=== PATIENT | female | born 1970 | race Caucasian/White ===

== ENCOUNTER 2017-07-13 15:09 | Outpatient (CLI) | payer BC | END 2017-07-13 15:10 | disposition home or self-care (01) | LOC: BICMAMMO 15:09 | DX: Z12.31 Encounter for screening mammogram for malignant neoplasm of breast (principal) | CPT/HCPCS: 77063; 77067 ==

== ENCOUNTER 2018-11-14 14:51 | Outpatient (CLI) | payer BC ==
--- NOTE | 2018-11-14 15:53 | RAD ---
RIGHT KNEE FOUR VIEWS: 11/14/18 HISTORY: Right knee pain. FINDINGS/IMPRESSION: No fracture, dislocation or bony destruction seen. No joint effusions identified. Minimal osteophyto sis is noted. POS: [facility]
== END 2018-11-14 14:52 | disposition home or self-care (01) ==
LOC: SCSRAD 14:51
PROVIDERS: ATTEND Nurse Practitioner Family
DX: M25.561 Pain in right knee (principal); G89.29 Other chronic pain

== ENCOUNTER 2018-11-23 07:30 | Outpatient (CLI) | payer BC ==
--- NOTE | 2018-11-23 08:30 | MMO ---
Bilateral MAMMO Bilat Screen [facility]. CLINICAL HISTORY: Patient is 48 years old and is seen for screening. The patient has the following family history of breast cancer: maternal grandmother, great grandmother. The patient has no personal history of cancer. VIEWS: The views performed were: bilateral craniocaudal with tomosynthesis and bilateral mediolateral oblique with tomosynthesis. FILMS COMPARED: The present examination has been compared to prior imaging studies performed at [facility] on 08/08/2013, 08/15/2014, 10/16/2015 and 07/13/2017. MAMMOGRAM FINDINGS: There are scattered fibroglandular densities. There are no suspicious masses, suspicious calcifications, or new areas of architectural distortion. IMPRESSION: THERE IS NO MAMMOGRAPHIC EVIDENCE OF MALIGNANCY. A ROUTINE FOLLOW-UP MAMMOGRAM IN 1 YEAR IS RECOMMENDED. THE RESULTS OF THIS EXAM WERE SENT TO THE PATIENT. ACR BI-RADS Category 1 - Negative MAMMOGRAPHY NOTE: 1. A negative mammogram report should not delay a biopsy if a dominant of clinically suspicious mass is present. 2. Approximately 10% to 15% of breast cancers are not detected by mammography. 3. Adenosis and dense breasts may obscure an underlying neoplasm. Reported by: SHELIA CHURCH MD Electonically Signed: [id number]
== END 2018-11-23 07:31 | disposition home or self-care (01) ==
LOC: BICMAMMO 07:30
PROVIDERS: ATTEND Nurse Practitioner Family
DX: Z12.31 Encounter for screening mammogram for malignant neoplasm of breast (principal); Z80.3 Family history of malignant neoplasm of breast
CPT/HCPCS: 77063; 77067

== ENCOUNTER 2020-01-08 11:48 | Outpatient (CLI) | payer BC ==
--- NOTE | 2020-01-08 16:34 | MMO ---
Bilateral MAMMO Bilat Screen [facility]. CLINICAL HISTORY: Patient is 49 years old and is seen for screening. The patient has the following family history of breast cancer: maternal grandmother, great grandmother. The patient has no personal history of cancer. VIEWS: The views performed were: bilateral craniocaudal with tomosynthesis and bilateral mediolateral oblique with tomosynthesis. FILMS COMPARED: The present examination has been compared to prior imaging studies performed at [facility] on 08/15/2014, 10/16/2015, 07/13/2017 and 11/23/2018. This study has been interpreted with the assistance of computer-aided detection. MAMMOGRAM FINDINGS: There are scattered fibroglandular densities. There are no suspicious masses, suspicious calcifications, or new areas of architectural distortion. IMPRESSION: THERE IS NO MAMMOGRAPHIC EVIDENCE OF MALIGNANCY. A ROUTINE FOLLOW-UP MAMMOGRAM IN 1 YEAR IS RECOMMENDED. THE RESULTS OF THIS EXAM WERE SENT TO THE PATIENT. ACR BI-RADS Category 1 - Negative MAMMOGRAPHY NOTE: 1. A negative mammogram report should not delay a biopsy if a dominant of clinically suspicious mass is present. 2. Approximately 10% to 15% of breast cancers are not detected by mammography. 3. Adenosis and dense breasts may obscure an underlying neoplasm. Reported by: MYRIAM HOPKINS MD Electonically Signed: [id number]
== END 2020-01-08 11:49 | disposition home or self-care (01) ==
LOC: BICMAMMO 11:48
PROVIDERS: ATTEND Family Medicine
DX: Z12.31 Encounter for screening mammogram for malignant neoplasm of breast (principal); Z80.3 Family history of malignant neoplasm of breast
CPT/HCPCS: 77063; 77067

== ENCOUNTER 2021-05-18 12:35 | Outpatient (CLI) | payer BC | END 2021-05-18 12:36 | disposition home or self-care (01) | LOC: BICMAMMO 12:35 | PROVIDERS: ATTEND Family Medicine | DX: Z12.31 Encounter for screening mammogram for malignant neoplasm of breast (principal); Z80.3 Family history of malignant neoplasm of breast | CPT/HCPCS: 77063; 77067 ==

== ENCOUNTER 2023-07-28 14:53 | Outpatient (CLI) | payer BC | END 2023-07-28 14:54 | disposition home or self-care (01) | LOC: BICMAMMO 14:53 | PROVIDERS: ATTEND Family Medicine | DX: Z12.31 Encounter for screening mammogram for malignant neoplasm of breast (principal); Z80.3 Family history of malignant neoplasm of breast | CPT/HCPCS: 77063; 77067 ==

== ENCOUNTER 2023-09-09 11:31 | Outpatient (CLI) | payer BC | END 2023-09-09 11:32 | disposition home or self-care (01) | LOC: DTY/OP 11:31 | PROVIDERS: ATTEND Specialist | DX: E66.01 Morbid (severe) obesity due to excess calories (principal) | CPT/HCPCS: 97802 ==

== ENCOUNTER 2023-10-05 15:39 | Outpatient (CLI) | payer BC ==
[2023-10-05 16:37] LABS: #Basophils 0.02 10x3/uL (0.0-0.2); #Eosinphils 0.09 10x3/uL (0.0-0.5); #Monocytes 0.61 10x3/uL (0.0-1.1); #Neutrophils 5.21 10x3/uL (1.5-8.4); %Basophils 0.2 % (0.0-2.0); %Eosinophils 1.1 % (0.0-6.0); %Monocytes 7.2 % (0.0-10.0); %Neutrophils 61.1 % (40.0-75.0); Hematocrit 41.2 % (34.9-44.5); Hemoglobin 14.6 g/dL (12.0-15.5); Mean Corpuscular HGB CONC 35.4 g/dL (32.0-36.0); Mean Corpuscular Hemoglobin 32.7 pg (27.0-33.0); Mean Corpuscular Volume 92.2 fL (81.6-98.3); Mean Platelet Volume 9.8 fL (7.4-10.4); Platelet Count 317 10x3/uL (150-450); RBC Distribution Width 12.5 % (11.5-14.5); Red Blood Cell (RBC) Count 4.47 10x6/uL (3.90-5.03); White Blood Cell (WBC) Count 8.5 10x3/uL (3.5-10.5)
[2023-10-05 16:51] LABS: Anion Gap 15 mmol/L (10-20); BUN (Urea Nitrogen) 21 mg/dL (9.8-20.1); Calc. Creatinine Clearance 0 mL/min (70-130); Calcium 10.4 mg/dL (7.8-10.44); Carbon Dioxide 25 mmol/L (22-29); Chloride 102 mmol/L (98-107); Estimated GFR 83; Glucose 90 mg/dL (70-105); Potassium 4.1 mmol/L (3.5-5.1); Sodium 138 mmol/L (136-145)
[2023-10-05 20:03] LABS: Hemoglobin A1c 5.4 % (4.0-6.0)
== END 2023-10-05 15:40 | disposition home or self-care (01) ==
LOC: LABBT 15:39
PROVIDERS: ATTEND Specialist
DX: Z01.818 Encounter for other preprocedural examination (principal)
CPT/HCPCS: 80048; 83036; 85025; 93005; 93010

== ENCOUNTER 2023-10-05 16:30 | Inpatient (IN) | payer BC ==
[2023-10-05 15:57] VITALS: BMI 45.4
[2023-10-13] MEDS ORDERED: EPINEPHrine 1 MG/ML VIAL ONE ×2 (08:20→09:49)
[2023-10-13] MEDS ORDERED: Midazolam HCl 2 mg/2 ml Vial ONE (08:20)
[2023-10-13] MEDS ORDERED: fentaNYL 50 mcg/mL 1 mL Vial ONE ×3 (08:20→13:52)
[2023-10-13] MEDS ORDERED: Lidocaine 1% (PF) 30 ML VIAL ONE ×2 (08:21→09:42)
[2023-10-13] MEDS ORDERED: Bupivacaine PF 0.5% 30 ML VIAL ONE (08:21)
[2023-10-13] MEDS ORDERED: Ketorolac Tromethamine 30 MG (1 mL) VIAL ONE (08:25)
[2023-10-13] MEDS ORDERED: Acetaminophen 500 MG TAB ONE (08:26)
[2023-10-13] MEDS ORDERED: Sodium Chloride 0.9% 100 ML ONE ×2 (08:26→10:59)
[2023-10-13] MEDS ORDERED: CEFAZOLIN 2 GM VIAL ONE (08:26)
[2023-10-13] MEDS ORDERED: Heparin 5,000 UNITS/ML VIAL ONE (09:56)
[2023-10-13] MEDS ORDERED: PROPOFOL 20 ML ONE (09:57)
[2023-10-13] MEDS ORDERED: Lidocaine 2% PF 5 ML VIAL ONE (09:57)
[2023-10-13] MEDS ORDERED: fentaNYL PF 100 MCG/2 ML SYRINGE ONE (09:57)
[2023-10-13] MEDS ORDERED: Rocuronium Bromide 10 MG/ML (10ML VIAL) ONE (10:02)
[2023-10-13] MEDS ORDERED: Ondansetron PF 4 MG/2 ML Vial ONE (10:31)
[2023-10-13] MEDS ORDERED: Dexamethasone 20 MG/5 ML VIAL ONE (10:31)
[2023-10-13] MEDS ORDERED: Promethazine HCl 25 MG/ML VIAL ONE (10:40)
[2023-10-13] MEDS ORDERED: HYDROmorphone 2 MG/ML VIAL ONE (10:43)
[2023-10-13] MEDS ORDERED: Indocyanine Green 25 MG/10 ML VIAL ONE (10:58)
[2023-10-13] MEDS ORDERED: Esmolol 100 MG/10 ML VIAL ONE (11:13)
[2023-10-13] MEDS ORDERED: SUGAMMADEX SODIUM 200 MG/2 ML VIAL ONE (11:41)
[2023-10-13] MEDS ORDERED: Glucagon 1 MG/ML KIT IM PRN (12:09)
[2023-10-13] MEDS ORDERED: Promethazine HCl 25 MG/ML VIAL IM PRN (12:09)
[2023-10-13] MEDS ORDERED: Morphine 4 MG/ML VIAL SLOW IVP PRN (12:09)
[2023-10-13] MEDS ORDERED: Morphine 2 MG/ML VIAL SLOW IVP PRN (12:09)
[2023-10-13] MEDS ORDERED: diphenhydrAMINE 50 MG/ML VIAL IVP PRN (12:09)
[2023-10-13] MEDS ORDERED: Dextrose 50% Abboject 50 ML SYRINGE SLOW IVP PRN (12:09)
[2023-10-13] MEDS ORDERED: Ipratropium/Albuterol 3 ML NEB NEB PRN (12:09)
[2023-10-13] MEDS ORDERED: Dextrose 5% in Water 1,000 ML IV PRN (12:09)
[2023-10-13] MEDS ORDERED: Labetalol HCl 100 MG/20 ML VIAL ONE (12:57)
[2023-10-13] MEDS ORDERED: hydrALAZINE 20 MG/ML VIAL ONE (13:10)
[2023-10-13] MEDS: D5 1/2 NS w/20 mEq KCL 1,000 ML IV SCH (14:18)
[2023-10-13] MEDS: Ketorolac Tromethamine 30 MG (1 mL) VIAL IVP SCH (14:18)
[2023-10-13] MEDS: Ondansetron PF 4 MG/2 ML Vial IVP PRN (17:07)
[2023-10-13] MEDS: Enoxaparin 40 MG (0.4 mL) SYRINGE SC SCH (20:53)
[2023-10-13] MEDS: Hydrocodone-Acetamin 15 ML UDCUP PO PRN (20:58)
[2023-10-14 05:51] LABS: #Basophils Less than 0.03 10x3/uL (0.0-0.2); #Eosinphils Less than 0.03 10x3/uL (0.0-0.7); %Basophils 0.1 % (0.0-1.0); %Lymphocytes 13.8 % (21.0-51.0); %Monocytes 8.6 % (0.0-10.0); %Neutrophils 77.1 % (42.0-75.0); Mean Corpuscular Volume 91.5 fL (78.0-98.0); Mean Platelet Volume 9.8 fL (7.4-10.4); Platelet Count 294 10x3/uL (130-400); RBC Distribution Width 12.5 % (11.5-14.5); Red Blood Cell (RBC) Count 4.37 mill/uL (4.20-5.40)
[2023-10-14 06:20] LABS: Anion Gap 18 mmol/L (10-20); BUN (Urea Nitrogen) 9 mg/dL (9.8-20.1); Calc. Creatinine Clearance 140 mL/min (70-130); Calcium 9.6 mg/dL (7.8-10.44); Carbon Dioxide 20 mmol/L (22-29); Chloride 104 mmol/L (98-107); Estimated GFR 95; Glucose 100 mg/dL (70-105); Potassium 3.7 mmol/L (3.5-5.1); Sodium 138 mmol/L (136-145)
[2023-10-14] MEDS: Pantoprazole 40 MG VIAL IVP SCH (08:00)
[2023-10-14] MEDS: hydrALAZINE 20 MG/ML VIAL SLOW IVP PRN (11:34)
[2023-10-14 12:00] VITALS: BP 143/96; TEMP 98.4
== END 2023-10-14 12:43 | disposition home or self-care (01) | DRG 621 ==
LOC: SURG A 10-13 08:02 → SURG B 10-13 15:05
PROVIDERS: ADMIT Specialist; ATTEND Specialist
PROC: 0DB64Z3 Excision of Stomach, Percutaneous Endoscopic Approach, Vertical (ICD-10-PCS; principal; 2023-10-13)
PROC: 8E0W4CZ Robotic Assisted Procedure of Trunk Region, Percutaneous Endoscopic Approach (ICD-10-PCS; 2023-10-13)
DX: E66.01 Morbid (severe) obesity due to excess calories (principal); G47.30 Sleep apnea, unspecified; F41.9 Anxiety disorder, unspecified; Z68.42 Body mass index [BMI] 45.0-49.9, adult; Z87.891 Personal history of nicotine dependence; Z98.51 Tubal ligation status; Z79.899 Other long term (current) drug therapy
CPT/HCPCS: 36415; 80048; 85025; 88307; C9113; J0171; J0360; J0665; J1100; J1170; J1644; J1650; J1885; J2001; J2250; J2405; J2550; J2704; J3010; J3490